=== PATIENT | male | born 1945 | race Hispanic/Latino ===

== ENCOUNTER 2023-05-21 17:57 | Inpatient (IN) | payer OTHER ==
[2023-05-21 18:45] LABS: Absolute Lymphocytes (CBC) 0.2 K/uL (0.7-4.9); Hematocrit 32.9 % (39.6-49.0); Lymphocytes % 1.8 % (15.3-44.8); MCV 95.6 fL (80-100); MPV 8.7 fL (7.6-11.3); Platelets 189 thou/uL (152-406); RBC Red Blood Cell Count 3.44 M/uL (4.33-5.43)
[2023-05-21 18:48] LABS: Protime INR 1.33
[2023-05-21] MEDS ORDERED: NA CHLORIDE 0.9% 1,000 ML ONE ×3 (18:49→21:34)
[2023-05-21] MEDS ORDERED: CEFTRIAXONE 1000 MG/VIAL ONE (18:49)
[2023-05-21] MEDS ORDERED: ACETAMINOPHEN 500 MG TAB ONE (18:49)
--- NOTE | 2023-05-21 18:57 | RAD REPORT ---
EXAM DESCRIPTION: RAD - Chest Single View - 05/21/2023 6:46 pm CLINICAL HISTORY: COUGH Chest pain. COMPARISON: Chest Pa And Lat (2 Views) dated 12/27/2022; Chest Pa And Lat (2 Views) dated 08/10/2021; C hest Pa And Lat (2 Views) dated 02/20/2016; CHEST PA AND LAT 2 VIEW dated 04/21/2015 FINDINGS: Portable technique limits examination quality. The lungs are mildly emphysematous but clear. The heart is normal in size. No displaced fractures. IMPRESSION: Mild COPD.
[2023-05-21 19:07] LABS: Albumin 3.7 g/dL (3.4-5.0); Bilirubin Total 0.8 mg/dL (0.2-1.0); Potassium 3.4 mEq/L (3.5-5.1)
[2023-05-21 20:30] LABS: Specific Gravity 1.016 (1.005-1.030); Urine Bacteria <20 /HPF (<20); Urine Bilirubin 2+ (Negative); Urine Blood 1+ (Negative); Urine Clarity Extremely Turbid (Clear); Urine Color Dark-Yellow (Yellow); Urine Glucose NEGATIVE (Negative); Urine Mucus Slight /HPF (None Seen); Urine Protein 2+ (Negative); Urine Urobilinogen 2+ (Normal); Urine pH 6.5 (5.0-7.0)
[2023-05-21] MEDS ORDERED: MAGNESIUM SULFATE 1 gm IVPB 1 GM/100 ML BAG IV ONE (20:41)
[2023-05-21] MEDS ORDERED: POTASSIUM CL SA 10 MEQ TAB PO ONE (20:41)
--- NOTE | 2023-05-21 21:04 | EDPHYS ---
Physician Documentation [facility] Name: Lele Bain Age: 78 yrs Sex: Male : 1945 Arrival Date: 05/21/2023 Time: 17:57 Bed 19 Private MD: ED Physician Khris Rodriguez HPI: 05/21 18:04 This 78 yrs old Male presents to ER via Unassigned with complaints of ec2 confusion, urinary retention. 18:05 Patient arrives today due to concern for altered mental status. Hard to gather history ec2 from patient as he is slightly altered. He does report he has been having issues with urination, states that he feels he is unable to void and has not voided since approximately 15 hours ago. No reported fevers or chills, no nausea or vomiting. EMS reports he was significantly tachycardic with a heart rate in the 160s on their initial arrival on assessment. They had given him some crystalloid which improved his heart rate. Patient reports history of hypertension.. Historical: - Allergies: 18:06 No Known Allergies; mb9 - Home Meds: 18:06 folic acid 1 mg Oral tablet [Active]; losartan 100 mg oral tablet [Active]; mb9 methotrexate sodium 2.5 mg Oral tablet [Active]; amlodipine 5 mg tablet [Active]; - PMHx: 18:06 Hypertensive disorder; mb9 - PSHx: 18:06 back; mb9 - Immunization history:: Adult Immunizations up to date. - Social history:: Smoking status: Patient reports the use of cigarette tobacco products, denies chronic smoking, but will smoke occasionally. ROS: 18:06 Constitutional: as per hpi ec2 Exam: 18:06 Constitutional: GEN: NAD Head: atraumatic Eyes: EOMI Ears: External ears are ec2 normal. CV: Tachycardia LUNGS: no respiratory distress ABD: non-distended, soft, nontender, no guarding, not rigid SKIN: no evidence of rashes MSK: no evidence of trauma NEURO: moves all extremities equally Vital Signs: 18:02 BP 121 / 65; Pulse 108; Resp 18; Temp 98.4; Pulse Ox 100% on R/A; Weight 63.5 kg; mb9 Height 5 ft. 4 in. ; Pain 0/10; 18:49 BP 113 / 79; Pulse 112; Resp 24; Pulse Ox 100% on R/A; mb9 20:14 Pulse 104; ec2 20:36 BP 94 / 57; Pulse 104; Resp 21; Pulse Ox 98% ; bp 20:56 BP 94 / 57; Pulse 95; ec2 21:02 BP 102 / 58; Pulse 98; ec2 22:00 BP 90 / 55; Pulse 96; Resp 20; Pulse Ox 100% ; bp 05/22 00:00 BP 84 / 66; Pulse 95; Resp 25; Pulse Ox 97% ; bp 01:30 BP 102 / 59; Pulse 97; Resp 25; Pulse Ox 98% ; bp 05/21 18:02 Body Mass Index 24.03 (63.50 kg, 162.56 cm) mb9 05/21 18:02 Pain Scale: Adult mb9 MDM: 05/21 18:03 Patient medically screened. ec2 18:06 ED course: Patient arrives today due to concern for altered mental status as well as ec2 urinary retention. Examination remarkable for well-appearing nontoxic dividual otherwise in no acute distress with reassuring blood pressure and some tachycardia noted on our initial assessment. Will obtain a septic work-up, perform bladder scan, empirically treat for urinary pathology. Currently considered) such as electrolyte disturbances, urinary tract infection, pneumonia, hyperammonemia.. 18:55 ED course: EKG independently reviewed and interpreted by me, shows sinus tachycardia, ec2 rate of 109, no acute ST segment elevations, intervals are nonconcerning, does have motion artifact appreciated.. 19:09 ED course: CBC is reassuring without significant anemia, metabolic profile shows slight ec2 hypokalemia with a potassium of 3.4, some renal dysfunction noted with a creatinine 1.35 and a GFR 53. Chest x-ray shows no acute process. . 19:20 ED course: Lactic acid was slight elevation at 3.0, ammonia level undetectable.. ec2 20:56 ED course: Urine is infectious appearing with leuk esterase, WBC as well as nitrates. ec2 We will proceed with admission to the hospital for sepsis secondary to UTI. I discussed the results with the patient, will admit, discussed with hospitalist who agrees accept admission. . 20:56 Data reviewed: vital signs. ec2 21:04 ED course: On reassessment patient with improving heart rate, stable blood pressures.. ec2 05/21 18:04 Order name: Blood Culture Adult (2) ec2 05/21 18:04 Order name: CBC with Diff; Complete Time: 19:08 ec2 05/21 18:04 Order name: CMP; Complete Time: 19:08 ec2 05/21 18:04 Order name: Lactate w/ 2H reflex if indic.; Complete Time: 19:20 ec2 05/21 18:04 Order name: Protime (+inr); Complete Time: 19:08 ec2 05/21 18:04 Order name: Ptt, Activated; Complete Time: 19:08 ec2 05/21 18:04 Order name: Urinalysis w/ reflexes; Complete Time: 20:55 ec2 05/21 18:06 Order name: AMMONIA; Complete Time: 19:20 ec2 05/21 20:40 Order name: Urine Culture EDMS 05/21 22:07 Order name: Lactate Sepsis 2 HR Follow-up EDMS 05/21 18:04 Order name: Chest Single View XRAY; Complete Time: 19:08 ec2 05/21 18:04 Order name: EKG; Complete Time: 18:05 ec2 05/21 18:04 Order name: Accucheck; Complete Time: 18:34 ec2 05/21 18:04 Order name: Cardiac monitoring; Complete Time: 18:34 ec2 05/21 18:04 Order name: EKG - Nurse/Tech; Complete Time: 18:34 ec2 05/21 18:04 Order name: IV Saline Lock - Large Bore; Complete Time: 18:34 ec2 05/21 18:04 Order name: Labs collected and sent; Complete Time: 18:34 ec2 05/21 18:04 Order name: O2 Per Protocol; Complete Time: 18:34 ec2 05/21 18:04 Order name: O2 Sat Monitoring; Complete Time: 18:34 ec2 05/21 18:04 Order name: Vital Signs; Complete Time: 18:34 ec2 05/21 18:05 Order name: Bladder Scanner; Complete Time: 20:25 ec2 Administered Medications: 18:49 Drug: Rocephin IV 1 grams IV at calculated rate once; Given slow IV push per pharmacy mb9 instructions Route: IV; Rate: calculated rate; Site: left forearm; 18:49 Drug: NS 0.9% IV 1000 ml IV at 1 bolus Per protocol; 1000 mL bolus Route: IV; Rate: 1 mb9 bolus; Site: left forearm; 18:50 Drug: Acetaminophen PO 1000 mg PO once Route: PO; mb9 20:07 Drug: NS 0.9% IV 1000 ml IV at 1 bolus Per protocol; 1000 mL bolus Route: IV; Rate: 1 bp bolus; Site: left forearm; 20:33 Drug: Potassium Chloride PO 40 mEq PO once Route: PO; bp 20:33 Drug: Magnesium Sulfate IVPB 1 grams IVPB once over 30 mins Route: IVPB; Infused Over: bp 30 mins; Site: left forearm; 21:33 Drug: NS 0.9% IV 1000 ml IV at 1 bolus Per protocol; 1000 mL bolus Route: IV; Rate: 1 bp bolus; Site: left forearm; Disposition Summary: 05/21/23 21:04 Hospitalization Ordered Notes: Hospitalization Status: Inpatient Admission ec2 Provider: Jigar Carlos ec2 Location: Telemetry/[facility] (Inpatient) ec2 Condition: Stable ec2 Problem: new ec2 Symptoms: have improved ec2 Bed/Room Type: Standard ec2 Room Assignment: 231(05/22/23 00:55) cg Diagnosis - UTI/ Urinary tract infection, site not specified ec2 - Sepsis, unspecified organism ec2 Forms: - Medication Reconciliation Form ec2 - SBAR form ec2 - Leadership Thank You Letter ec2 Critical care time excluding procedures: 20:56 Critical care time: Bedside Care: 30 minutes, Consultation: 4 minutes. Total time: 34 ec2 minutes Signatures: Dispatcher [employer] Candie Gutiérrez RN RN cg Peltier, Brian, RN RN bp Breneman, Mary Beth RN RN Khris Bear MD MD ec2 Corrections: (The following items were deleted from the chart) 05/22 00:55 05/21 21:04 ec2 cg
--- NOTE | 2023-05-21 21:04 | ER ---
Nurse's Notes [facility] Name: Lele Bain Age: 78 yrs Sex: Male : 1945 Arrival Date: 05/21/2023 Time: 17:57 Bed 19 Private MD: Diagnosis: UTI/ Urinary tract infection, site not specified;Sepsis, unspecified organism Presentation: 05/21 18:02 Chief complaint: EMS states: "family called for shaking, diaphoretic, confusion, 160 mb9 HR. 12 lead showed sinus tachycardia. 18 g right AC and administer 500 mls of NS. Coronavirus screen: Vaccine status: Patient reports receiving the 2nd dose of the covid vaccine. Ebola Screen: No symptoms or risks identified at this time. Initial Sepsis Screen: Does the patient meet any 2 criteria? No. Patient's initial sepsis screen is negative. Does the patient have a suspected source of infection? No. Patient's initial sepsis screen is negative. Risk Assessment: Do you want to hurt yourself or someone else? Patient reports no desire to harm self or others. Onset of symptoms was May 21, 2023. 18:02 Method Of Arrival: EMS: [facility] mb9 18:02 Acuity: SAEID 3 mb9 Triage Assessment: 18:08 General: Appears in no apparent distress. Behavior is calm, cooperative. Pain: Denies mb9 pain. EENT: No signs and/or symptoms were reported regarding the EENT system. Neuro: Leyva Agitation-Sedation Scale (RASS): 0 - Alert and Calm Level of Consciousness is awake, obeys commands, confused, Oriented to person, place, situation. Cardiovascular: Patient's skin is warm and dry. Cardiovascular: Denies chest pain, shortness of breath. Respiratory: Airway is patent Respiratory effort is even, unlabored, Respiratory pattern is regular, symmetrical. GI: No signs and/or symptoms were reported involving the gastrointestinal system. : Reports burning with urination, since last night. Derm: Skin is pink, warm \\T\\ dry. Musculoskeletal: Range of motion: intact in all extremities. Historical: - Allergies: 18:06 No Known Allergies; mb9 - Home Meds: 18:06 folic acid 1 mg Oral tablet [Active]; losartan 100 mg oral tablet [Active]; mb9 methotrexate sodium 2.5 mg Oral tablet [Active]; amlodipine 5 mg tablet [Active]; - PMHx: 18:06 Hypertensive disorder; mb9 - PSHx: 18:06 back; mb9 - Immunization history:: Adult Immunizations up to date. - Social history:: Smoking status: Patient reports the use of cigarette tobacco products, denies chronic smoking, but will smoke occasionally. Screenin:09 [facility] ED Fall Risk Assessment (Adult) History of falling in the last 3 months, mb9 including since admission No falls in past 3 months (0 pts) Confusion or Disorientation No (0 pts) Intoxicated or Sedated No (0 pts) Impaired Gait No (0 pts) Mobility Assist Device Used No (0 pt) Altered Elimination No (0 pt) Score/Fall Risk Level 0 - 2 = Low Risk Oriented to surroundings, Maintained a safe environment, Educated pt \\T\\ family on fall prevention, incl call for assistance when getting out of bed. Abuse screen: Denies threats or abuse. Nutritional screening: No deficits noted. Tuberculosis screening: No symptoms or risk factors identified. Assessment: 18:10 Reassessment: see triage assessment. mb9 19:00 Reassessment: RECD REPORT FROM AGUS CARRILLO. 78YO HM P/W MALAISE. bp 20:36 Reassessment: Patient appears in no apparent distress at this time. Patient is alert, bp oriented x 3, equal unlabored respirations, skin warm/dry/pink. Vital Signs: 18:02 BP 121 / 65; Pulse 108; Resp 18; Temp 98.4; Pulse Ox 100% on R/A; Weight 63.5 kg; mb9 Height 5 ft. 4 in. ; Pain 0/10; 18:49 BP 113 / 79; Pulse 112; Resp 24; Pulse Ox 100% on R/A; mb9 20:14 Pulse 104; ec2 20:36 BP 94 / 57; Pulse 104; Resp 21; Pulse Ox 98% ; bp 20:56 BP 94 / 57; Pulse 95; ec2 21:02 BP 102 / 58; Pulse 98; ec2 22:00 BP 90 / 55; Pulse 96; Resp 20; Pulse Ox 100% ; bp 05/22 00:00 BP 84 / 66; Pulse 95; Resp 25; Pulse Ox 97% ; bp 01:30 BP 102 / 59; Pulse 97; Resp 25; Pulse Ox 98% ; bp 05/21 18:02 Body Mass Index 24.03 (63.50 kg, 162.56 cm) mb9 05/21 18:02 Pain Scale: Adult mb9 ED Course: 05/21 18:02 Patient arrived in ED. mb9 18:03 Khris Rodriguez MD is Attending Physician. ec2 18:06 Triage completed. mb9 18:08 Arm band placed on. mb9 18:09 Placed in gown. Bed in low position. Call light in reach. Side rails up X 1. Client mb9 placed on continuous cardiac and pulse oximetry monitoring. NIBP monitoring applied. telemetry monitor on. 18:09 Maintain EMS IV. Dressing intact. Good blood return noted. Site clean \\T\\ dry. Gauge \\T\\ mb 9 site: 18 g right AC. 18:11 Lakesha High, GERARDO is Primary Nurse. mb9 18:34 AMMONIA Sent. mb9 18:34 CMP Sent. mb9 18:34 Blood Culture Adult (2) Sent. mb9 18:34 Protime (+inr) Sent. mb9 18:34 Ptt, Activated Sent. mb9 18:34 EKG done, by ED staff, reviewed by Khris Rodriguez MD. Inserted saline lock: 18 gauge in mb9 left forearm, using aseptic technique. 18:48 Chest Single View XRAY In Process Unspecified. EDMS 20:37 Primary Nurse role handed off by Lakesha High, GERARDO bp 20:37 Christopher Snyder, GERARDO is Primary Nurse. bp 21:03 Jigar Carlos MD is Hospitalizing Provider. ec2 05/22 01:32 No provider procedures requiring assistance completed. Patient admitted, IV remains in bp place. Administered Medications: 05/21 18:49 Drug: Rocephin IV 1 grams IV at calculated rate once; Given slow IV push per pharmacy mb9 instructions Route: IV; Rate: calculated rate; Site: left forearm; 18:49 Drug: NS 0.9% IV 1000 ml IV at 1 bolus Per protocol; 1000 mL bolus Route: IV; Rate: 1 mb9 bolus; Site: left forearm; 18:50 Drug: Acetaminophen PO 1000 mg PO once Route: PO; mb9 20:07 Drug: NS 0.9% IV 1000 ml IV at 1 bolus Per protocol; 1000 mL bolus Route: IV; Rate: 1 bp bolus; Site: left forearm; 20:33 Drug: Potassium Chloride PO 40 mEq PO once Route: PO; bp 20:33 Drug: Magnesium Sulfate IVPB 1 grams IVPB once over 30 mins Route: IVPB; Infused Over: bp 30 mins; Site: left forearm; 21:33 Drug: NS 0.9% IV 1000 ml IV at 1 bolus Per protocol; 1000 mL bolus Route: IV; Rate: 1 bp bolus; Site: left forearm; Medication: 18:09 VIS not applicable for this client. mb9 Outcome: 21:04 Decision to Hospitalize by Provider. ec2 05/22 01:33 Admitted to Med/surg accompanied by tech, family with patient, via wheelchair, room bp 231, Report called to FRANNY CARRILLO Condition: stable Instructed on the need for admit, 01:50 Patient left the ED. bp Signatures: Dispatcher [employer] Christopher Domingo, RN RN Lakesha Claros RN RN mb9 Khris Rodriguez MD MD ec2
--- NOTE | 2023-05-21 23:16 | P.HP ---
Certification for Inpatient Patient admitted to: Inpatient With expected LOS: >2 Midnights Practitioner: I am a practitioner with admitting privileges, knowledge of patient current condition, hospital course, and medical plan of care. Services: Services provided to patient in accordance with Admission requirements found in Title 42 Section 412.3 of the Code of Federal Regulations Patient History Date of Service: 05/22/23 Reason for admission: UTI, altered mental status History of Present Illness: 78-year-old male patient with medical history significant for diabetes type 2, hypertension, hyperlipidemia, history of suspected dementia who was evaluated for episode of altered mentation. Labs done in the ER was concerning for possible UTI as UA is extremely concerning with a turbid appearance and elevated leukocyte esterase and pyuria. Cultures were taken and he was admitted for inpatient care. Empiric antibiotic therapy with Rocephin was started for management. There was no reports of nausea, vomiting, diarrhea, fever, chills, rigor. Allergies No Known Allergies Allergy (Unverified 03/21/12 09:37) Home Medications: Amlodipine [Norvasc*] 1 tab PO DAILY 05/22/23 Folic Acid 1 tab PO DAILY 05/22/23 Losartan Potassium 100 mg PO DAILY 05/22/23 Methotrexate [Methotrexate*] 6 tab PO SEECOM 05/22/23 - Family History Father History Unknown: Yes Mother History Unknown: Yes Notes: passed when pt was 9 year old Review of Systems General: Weakness, Malaise Eyes: Unremarkable ENT: Unremarkable Respiratory: Unremarkable Cardiovascular: Unremarkable Gastrointestinal: Unremarkable Genitourinary: Unremarkable Musculoskeletal: Unremarkable Integumentary: Unremarkable Neurological: Confusion Physical Examination - Physical Exam General: Delirious HEENT: Atraumatic, Normocephalic Respiratory: Normal air movement Cardiovascular: Regular rate/rhythm, Normal S1 S2 Gastrointestinal: Soft and benign Musculoskeletal: No swelling - Studies Laboratory Data (last 24 hrs) 05/21/23 05/21/23 05/21/23 18:29 18:29 18:29 WBC 9.60 Hgb 11.2 L Hct 32.9 L Plt Count 189 PT 14.6 H INR 1.33 APTT 30.6 Sodium 137 Potassium 3.4 L BUN 22 H Creatinine 1.35 H Glucose 105 Total Bilirubin 0.8 AST 18 ALT 21 Alkaline Phosphatase 73 Assessment and Plan - Plan Toxic/Metabolic encephalopathy: Deemed secondary to his UTI episode. Urine cultures were taken. Empiric antibiotic therapy with rocephin was started. Will monitor mentation closely. UTI: Urinalysis is concerning. Urine culture has been obtained. we will monitor cultures for adjustment as needed. Hypertension: we will monitor vitals per unit protocol and continue antihypertensive medications. MAO vs CKD: elevated creatinine of 1.35 noted. we will hydrate and follow creatinine trend. we will dose meds for eGFR and avoid nephrotooxins. Prophylaxis: Lovenox for DVT. Code status: Full code. Disposition: we will treat his ams and UTI and discharge him once he is deemed clinically stable. Discharge Plan: Home - Advance Directives Does patient have a Living Will: No Does patient have a Durable POA for Healthcare: No
[2023-05-21] MEDS ORDERED: ONDANSETRON 4 MG/2 ML VIAL IV PRN (23:18)
[2023-05-21] MEDS ORDERED: ACETAMINOPHEN 325 MG TABLET PO PRN (23:18)
[2023-05-21] MEDS: NA CHLORIDE 0.9% 1,000 ML IV SCH (23:45)
[2023-05-22] MEDS: NA CHLORIDE 0.9% 1,000 ML IV SCH ×4 (02:32→22:53)
--- NOTE | 2023-05-22 07:54 | P.CNS ---
Date of Consult: 05/22/23 Reason for Consult: gram negative bacteremia Chief Complaint: UTI, altered mental status History of Present Illness: Patient is a 78 yo male with a past medical history of hypertension and hyperlipdemia who presented to the ED due to altered mental status. Urinalysis with 2+ nitrite, WBC >50, LE 500. Urine and blood cultures obtained in ED. Patient was started on empiric Rocephin IV. Blood cultures growing gram-negative rods in 4/4 bottles. infectious disease was consulted. Allergies No Known Allergies Allergy (Unverified 03/21/12 09:37) Home medications list reviewed: Yes Home Medications: Abatacept [Orencia] 125 mg SQ EVERY 7TH DAY 05/22/23 Amlodipine [Norvasc*] 1 tab PO DAILY 05/22/23 Folic Acid 1 tab PO DAILY 05/22/23 Losartan Potassium 100 mg PO DAILY 05/22/23 Methotrexate [Methotrexate*] 6 tab PO SEECOM 05/22/23 - Past Medical/Surgical History Diabetic: No -: Hypertension -: Arthritis - Family History Father History Unknown: Yes Mother History Unknown: Yes Notes: passed when pt was 9 year old - Social History Smoking Status: Current some day smoker Alcohol use: Yes CD- Drugs: No Caffeine use: Yes Place of Residence: Home Review of Systems 10-point ROS is otherwise unremarkable General: Chills, Weakness Genitourinary: Dysuria, Frequency Physical Examination Temp Pulse Resp BP Pulse Ox 98.3 F 82 16 106/68 97 05/22/23 04:00 05/22/23 04:00 05/22/23 04:00 05/22/23 04:00 05/22/23 04:00 General: Alert, In no apparent distress, Oriented x3 HEENT: Atraumatic Neck: Supple Respiratory: Clear to auscultation bilaterally, Normal air movement Cardiovascular: No edema, Regular rate/rhythm Gastrointestinal: Normal bowel sounds, Soft and benign Integumentary: No rashes Neurological: Normal speech Laboratory Data - Reviewed Microbiology Data - Reviewed Imagings Data: - Reviewed Conclusions/Impression: Problem List Gram-Negative Bacteremia likely secondary to Urinary Tract Infection Acute Kidney Injury Hypertension Gram-Negative Bacteremia likely secondary to Urinary Tract Infection - Blood cultures 05/21: gram-negative rods in 4 of 4 bottles - Urine culture 05/21: pending - Afebrile - On Rocephin (started 05/22) Recommendations Bacteremia/UTI: Continue Rocephin for now. - Awaiting final blood culture results. Will adjust antibiotics as appropriate. Monitor WBC and fever trends Case discussed with Howie Malagon
--- NOTE | 2023-05-22 09:13 | RAD REPORT ---
EXAM DESCRIPTION: CT - Head Brain Wo Cont - 05/22/2023 9:06 am CLINICAL HISTORY: AMS Headache, drowsiness COMPARISON: No comparisons TECHNIQUE: All CT scans are performed using dose optimization technique as appropriate and may inclu de automated exposure control or mA/KV adjustment according to patient size. FINDINGS: No intracranial hemorrhage, hydrocephalus or extra-axial fluid collection.Moderate brain a trophy.No areas of brain edema or evidence of midline shift. The paranasal sinuses and mastoids are clear. The calvarium is intact. IMPRESSION: No acute intracranial abnormality.
[2023-05-22] MEDS ORDERED: POTASSIUM CL SA 10 MEQ TAB PO ONE (10:33)
--- NOTE | 2023-05-22 10:37 | P.PN ---
Subjective Date of Service: 05/22/23 Chief Complaint: UTI, altered mental status Patient History Date of S admission: 05/22/23 Reason for admission: UTI, altered mental status History of Present Illness: 78-year-old male patient with medical history significant for diabetes type 2, hypertension, hyperlipidemia, history of suspected dementia who was evaluated for episode of altered mentation. Labs done in the ER was concerning for possible UTI as UA is extremely concerning with a turbid appearance and elevated leukocyte esterase and pyuria. Cultures were taken and he was admitted for inpatient care. Empiric antibiotic therapy with Rocephin was started for management. There was no reports of nausea, vomiting, diarrhea, fever, chills, rigor. 05/22/2023 Patient is alert and oriented x3 Denies any new complaints No acute distress noticed Patient's family at bedside <Serge Schwartz - Last Filed: 05/22/23 16:41> Date of Service: 05/22/23 <Kevyn Zuniga - Last Filed: 05/22/23 18:19> Review of Systems 10-point ROS is otherwise unremarkable <Serge Schwartz - Last Filed: 05/22/23 16:41> Physical Examination - Vital Signs Temperature: 98.3 F Blood Pressure: 106/68 Pulse: 82 Respirations: 16 Pulse Ox (%): 97 - Studies Laboratory Data (last 24 hrs) 05/21/23 05/21/23 05/21/23 18:29 18:29 18:29 WBC 9.60 Hgb 11.2 L Hct 32.9 L Plt Count 189 PT 14.6 H INR 1.33 APTT 30.6 Sodium 137 Potassium 3.4 L BUN 22 H Creatinine 1.35 H Glucose 105 Total Bilirubin 0.8 AST 18 ALT 21 Alkaline Phosphatase 73 Microbiology Data (last 24 hrs): 05/21/23 18:20 Blood - Blood Blood Culture Gram Stain - Final 05/21/23 18:20 Blood - Blood Gram Stain - Final 05/21/23 18:25 Blood - Blood Blood Culture Gram Stain - Final 05/21/23 18:25 Blood - Blood Gram Stain - Final <Serge Schwartz - Last Filed: 05/22/23 16:41> - Studies Laboratory Data (last 24 hrs) 05/21/23 05/21/23 05/21/23 18:29 18:29 18:29 WBC 9.60 Hgb 11.2 L Hct 32.9 L Plt Count 189 PT 14.6 H INR 1.33 APTT 30.6 Sodium 137 Potassium 3.4 L BUN 22 H Creatinine 1.35 H Glucose 105 Total Bilirubin 0.8 AST 18 ALT 21 Alkaline Phosphatase 73 Microbiology Data (last 24 hrs): 05/21/23 18:20 Blood - Blood Blood Culture Gram Stain - Final 05/21/23 18:20 Blood - Blood Gram Stain - Final 05/21/23 18:25 Blood - Blood Blood Culture Gram Stain - Final 05/21/23 18:25 Blood - Blood Gram Stain - Final <Kevyn Zuniga - Last Filed: 05/22/23 18:19> Assessment And Plan - Plan Physical Examination - Physical Exam General: Delirious HEENT: Atraumatic, Normocephalic Respiratory: Normal air movement Cardiovascular: Regular rate/rhythm, Normal S1 S2 Gastrointestinal: Soft and benign Musculoskeletal: No swelling Assessment and Plan - Plan Toxic/Metabolic encephalopathy: Deemed secondary to his UTI episode. UTI: * Patient is alert, oriented no acute distress noticed * Urine cultures were taken 05/21/2023. On empiric antibiotic therapy with rocephin * .Will monitor mentation closely. * we will monitor cultures for adjustment as needed. Hypertension: * Chronic controlled on amlodipine 5 mg and losartan 100 mg at home * Not resumed after admission since blood pressure is running low 100 * Will monitor and restart as needed * we will monitor vitals per unit protocol and continue antihypertensive medications. MAO vs CKD: * elevated creatinine. BUN 22 and creatinine 1.35 today, GFR 53. we will hydrate and follow creatinine trend. * we will dose meds for eGFR and avoid nephrotooxins. Prophylaxis: Lovenox for DVT. Code status: Full code. Disposition: we will treat his ams and UTI and discharge him once he is deemed clinically stable. Discharge Plan: Home Plan to discharge in: 72 Hours - Code Status/Comfort Care Code Status Assessed: Yes (Full code) Code Status: Full Code Critical Care: No Time Spent Managing PTS Care (In Minutes): 35 (Minute) <Serge Schwartz - Last Filed: 05/22/23 16:41> Physician Review: Patient Assessed, Agree with Above Assessment and Plan Physician Review Additional Text: Mr. Bain is a pleasant 78 year old male admitted yesterday for severe sepsis (POA). He was found to have a gram-negative UTI with gram-negative bacteremia. Infectious Diseases has been consulted. Currently on IV ceftriaxone and responding well to treatment. Will adjust treatment based on culture speciation and sensitivites. He is alert and oriented x3 today. <Kevyn Zuniga - Last Filed: 05/22/23 18:19>
[2023-05-22] MEDS: ENOXAPARIN 40 MG/0.4 ML SQ SCH (11:47)
[2023-05-22] MEDS ORDERED: LOSARTAN POTASSIUM 50 MG TABLET PO SCH (15:00)
[2023-05-22] MEDS ORDERED: AMLODIPINE 5 MG TAB PO SCH (15:00)
[2023-05-22 16:17] VITALS: BMI 24.6
[2023-05-22] MEDS ORDERED: CEFTRIAXONE 1,000 MG in NA CHLORIDE 0.9% 50 ML IVPB SCH (18:00)
[2023-05-23 03:36] LABS: Absolute Lymphocytes (CBC) 1.1 K/uL (0.7-4.9); Hematocrit 28.7 % (39.6-49.0); Lymphocytes % 5.2 % (15.3-44.8); MCV 95.3 fL (80-100); MPV 9.1 fL (7.6-11.3); Platelets 125 thou/uL (152-406); RBC Red Blood Cell Count 3.01 M/uL (4.33-5.43)
[2023-05-23] MEDS: NA CHLORIDE 0.9% 1,000 ML IV SCH ×3 (05:45→21:43)
--- NOTE | 2023-05-23 08:51 | P.PN ---
Date of Service: 05/23/23 Chief Complaint: UTI, altered mental status Subjective: Patient seen and examined at bedside. He denies any new or worsening complaints at this time. No acute events reported overnight. Plan of care discussed with patient and granddaughter in room. Physical Examination Temp Pulse Resp BP Pulse Ox 98.5 F 76 16 136/69 99 05/23/23 04:00 05/23/23 04:00 05/23/23 04:00 05/23/23 04:00 05/23/23 04:00 General: Alert, In no apparent distress, Oriented x3 HEENT: Atraumatic. Normocephalic. Respiratory: Clear to auscultation bilaterally, Normal air movement Cardiovascular: No edema, Regular rate/rhythm Gastrointestinal: Normal bowel sounds, Soft and benign. No tenderness. Integumentary: No rashes Neurological: Normal speech Laboratory Data - Reviewed Microbiology Data - Reviewed Imagings Data: - Reviewed Medications List: Reviewed Assessment and Plan Problem List Gram-Negative Bacteremia likely secondary to Urinary Tract Infection Acute Kidney Injury Hypertension Gram-Negative Bacteremia secondary to Urinary Tract Infection - Blood cultures 05/21: gram-negative rods in 4 of 4 bottles - Urine culture 05/21: Escherichia coli ESBL - Started on empiric Rocephin on 05/22 which was switched to Meropenem on 05/23 following urine culture results Leukocytosis (WBC 20.5) Afebrile Recommendations Bacteremia/UTI: Started on Meropenem 05/23. Continue antibiotic therapy for 10 days (05/23-06/02) - Awaiting final blood culture results. Will adjust antibiotics as appropriate. - Patient will need PICC line - Monitor WBC and fever trends - Follow up with urologist as outpatient Case discussed with Howie Malagon
[2023-05-23] MEDS ORDERED: HOME MED 1 EA UNK (Losartan Potassium [Losartan Potassium] 100 MG Tablet) PO SCH (09:00)
[2023-05-23] MEDS: Meropenem 1,000 MG in NA CHLORIDE 0.9% 100 ML IV SCH ×2 (09:28→16:58)
[2023-05-23] MEDS: ENOXAPARIN 40 MG/0.4 ML SQ SCH (09:28)
--- NOTE | 2023-05-23 10:14 | P.PN ---
Subjective Date of Service: 05/23/23 Chief Complaint: UTI, altered mental status Subjective: No C/O voiced, Doing well Patient History Date of S admission: 05/22/23 Reason for admission: UTI, altered mental status History of Present Illness: 78-year-old male patient with medical history significant for diabetes type 2, hypertension, hyperlipidemia, history of suspected dementia who was evaluated for episode of altered mentation. Labs done in the ER was concerning for possible UTI as UA is extremely concerning with a turbid appearance and elevated leukocyte esterase and pyuria. Cultures were taken and he was admitted for inpatient care. Empiric antibiotic therapy with Rocephin was started for management. There was no reports of nausea, vomiting, diarrhea, fever, chills, rigor. 05/23/2023 Patient is alert and oriented x3 Denies any new complaints No acute distress noticed Patient's family at bedside Elevated WBCs today <Serge Schwartz - Last Filed: 05/23/23 16:24> Date of Service: 05/23/23 <Kevyn Zuniga - Last Filed: 05/23/23 19:23> Review of Systems 10-point ROS is otherwise unremarkable <Serge Schwartz - Last Filed: 05/23/23 16:24> Physical Examination - Vital Signs Temperature: 99.0 F Blood Pressure: 138/72 Pulse: 84 Respirations: 14 Pulse Ox (%): 98 - Studies Microbiology Data (last 24 hrs): 05/21/23 20:05 Clean Catch Urine [place] Count - Final >100,000 CFU/ML. 05/21/23 20:05 Clean Catch Urine - Final Escherichia Coli Esbl 05/21/23 18:25 Blood - Blood Blood Culture Gram Stain - Final 05/21/23 18:25 Blood - Blood Gram Stain - Final 05/21/23 18:20 Blood - Blood Blood Culture Gram Stain - Final 05/21/23 18:20 Blood - Blood Gram Stain - Final <Serge Schwartz - Last Filed: 05/23/23 16:24> - Studies Microbiology Data (last 24 hrs): 05/21/23 20:05 Clean Catch Urine [place] Count - Final >100,000 CFU/ML. 05/21/23 20:05 Clean Catch Urine - Final Escherichia Coli Esbl 05/21/23 18:25 Blood - Blood Blood Culture Gram Stain - Final 05/21/23 18:25 Blood - Blood Gram Stain - Final 05/21/23 18:20 Blood - Blood Blood Culture Gram Stain - Final 05/21/23 18:20 Blood - Blood Gram Stain - Final <Kevyn Zuniga - Last Filed: 05/23/23 19:23> Assessment And Plan - Plan Physical Examination - Physical Exam General: Alert and oriented HEENT: Atraumatic, Normocephalic Respiratory: Normal air movement Cardiovascular: Regular rate/rhythm, Normal S1 S2 Gastrointestinal: Soft and benign Musculoskeletal: No swelling Assessment and Plan - Plan Toxic/Metabolic encephalopathy: Deemed secondary to his UTI episode. Leukocytosis UTI: * Patient is alert, oriented no acute distress noticed * WBCs increased to 20.5 today, no fever, no tachycardia, breathing normally on room air. * changed antibiotic to Merrem 500 every [address] Zuniga * Will monitor mentation closely. * we will monitor cultures for adjustment as needed. Hypertension: * Chronic controlled on amlodipine 5 mg and losartan 100 mg at home * Resume home medications * we will monitor vitals per unit protocol and continue antihypertensive medications. MAO vs CKD: * Improved BUN and creatinine normal today, GFR 89. * we will dose meds for eGFR and avoid nephrotooxins. Prophylaxis: Lovenox for DVT. Code status: Full code. Disposition: we will treat his ams and UTI and discharge him once he is deemed clinically stable. Discharge Plan: Home Plan to discharge in: 72 Hours - Code Status/Comfort Care Code Status Assessed: Yes (full code) Code Status: Full Code Physician Review: Patient Assessed, Agree with Above Assessment and Plan Critical Care: No Time Spent Managing PTS Care (In Minutes): 35 (minutes) <Serge Schwartz - Last Filed: 05/23/23 16:24> Physician Review: Patient Assessed, Agree with Above Assessment and Plan Physician Review Additional Text: Urine culture revealed ESBL E. Coli. Blood culture results are still pending. Appreciate ID recs. Will likely require a PICC line with IV antibiotics at discharge. <Kevyn Zuniga - Last Filed: 05/23/23 19:23>
[2023-05-23] MEDS: NICOTINE 7 MG/PAT TD SCH (11:16)
--- NOTE | 2023-05-23 15:49 | EKG ---
Test Date: 2023-05-21 Test Time: 18:42:30 Clean Up Person: MB MEASUREMENT RESULTS: Intervals: Rate: 109 IL: 168 QRSD: 70 QT: 336 QTc: 452 [place]: P: 77 IL: 168 QRS: 62 T: 57 INTERPRETIVE STATEMENTS: Sinus tachycardia Septal infarct, age undetermined Abnormal ECG Compared to ECG 06/24/1999 13:30:00 Myocardial infarct finding now present Sinus rhythm no longer present Electronically Signed On 05-23-23 15:43:51 CDT by Varinder Back
[2023-05-24] MEDS: Meropenem 1,000 MG in NA CHLORIDE 0.9% 100 ML IV SCH ×3 (01:17→17:00)
[2023-05-24 03:39] LABS: Absolute Lymphocytes (CBC) 0.8 K/uL (0.7-4.9); Hematocrit 30.5 % (39.6-49.0); Lymphocytes % 4.4 % (15.3-44.8); MCV 94.2 fL (80-100); MPV 9.9 fL (7.6-11.3); Platelets 141 thou/uL (152-406); RBC Red Blood Cell Count 3.24 M/uL (4.33-5.43)
[2023-05-24] MEDS: NA CHLORIDE 0.9% 1,000 ML IV SCH ×2 (07:06→21:58)
[2023-05-24 08:56] LABS: Potassium 3.7 mEq/L (3.5-5.1)
[2023-05-24] MEDS: ENOXAPARIN 40 MG/0.4 ML SQ SCH (10:24)
--- NOTE | 2023-05-24 11:27 | P.PN ---
Subjective Date of Service: 05/24/23 Chief Complaint: UTI, altered mental status Subjective: Improving, Doing well Patient History Date of S admission: 05/22/23 Reason for admission: UTI, altered mental status History of Present Illness: 78-year-old male patient with medical history significant for diabetes type 2, hypertension, hyperlipidemia, history of suspected dementia who was evaluated for episode of altered mentation. Labs done in the ER was concerning for possible UTI as UA is extremely concerning with a turbid appearance and elevated leukocyte esterase and pyuria. Cultures were taken and he was admitted for inpatient care. Empiric antibiotic therapy with Rocephin was started for management. There was no reports of nausea, vomiting, diarrhea, fever, chills, rigor. 05/23/2023 Patient is alert and oriented x3 Reports dyuria and frequency today No acute distress noticed Patient's family at bedside High WBCs trending down <Serge Schwartz - Last Filed: 05/24/23 14:51> Date of Service: 05/24/23 <Kevyn Zuniga - Last Filed: 05/24/23 16:33> Physical Examination - Vital Signs Temperature: 97.2 F Blood Pressure: 171/80 Pulse: 73 Respirations: 12 Pulse Ox (%): 97 - Studies Microbiology Data (last 24 hrs): 05/21/23 18:20 Blood - Blood Aerobic Blood Culture - Final Escherichia Coli Esbl 05/21/23 18:20 Blood - Blood Blood Culture Gram Stain - Final 05/21/23 18:20 Blood - Blood Anaerobic Blood Culture - Final Escherichia Coli Esbl 05/21/23 18:20 Blood - Blood Gram Stain - Final 05/21/23 18:25 Blood - Blood Aerobic Blood Culture - Final Escherichia Coli Esbl 05/21/23 18:25 Blood - Blood Blood Culture Gram Stain - Final 05/21/23 18:25 Blood - Blood Anaerobic Blood Culture - Final Escherichia Coli Esbl 05/21/23 18:25 Blood - Blood Gram Stain - Final 05/21/23 20:05 Clean Catch Urine [place] Count - Final >100,000 CFU/ML. 05/21/23 20:05 Clean Catch Urine - Final Escherichia Coli Esbl <Serge Schwartz - Last Filed: 05/24/23 14:51> - Studies Microbiology Data (last 24 hrs): 05/21/23 18:20 Blood - Blood Aerobic Blood Culture - Final Escherichia Coli Esbl 05/21/23 18:20 Blood - Blood Blood Culture Gram Stain - Final 05/21/23 18:20 Blood - Blood Anaerobic Blood Culture - Final Escherichia Coli Esbl 05/21/23 18:20 Blood - Blood Gram Stain - Final 05/21/23 18:25 Blood - Blood Aerobic Blood Culture - Final Escherichia Coli Esbl 05/21/23 18:25 Blood - Blood Blood Culture Gram Stain - Final 05/21/23 18:25 Blood - Blood Anaerobic Blood Culture - Final Escherichia Coli Esbl 05/21/23 18:25 Blood - Blood Gram Stain - Final <Kevyn Zuniga - Last Filed: 05/24/23 16:33> Assessment And Plan - Plan Physical Examination - Physical Exam General: Alert and oriented HEENT: Atraumatic, Normocephalic Respiratory: Normal air movement Cardiovascular: Regular rate/rhythm, Normal S1 S2 Gastrointestinal: Soft and benign Musculoskeletal: No swelling Assessment and Plan - Plan Toxic/Metabolic encephalopathy: Deemed secondary to his UTI episode. Leukocytosis UTI: * Patient is alert, oriented no acute distress noticed * 05/21/23- blood culture aerobic Blood Culture - Final. COVID Escherichia Coli Esbl and 05/21/23 Clean Catch Urine- Final Escherichia Coli Esbl. * WBCs increased to 17.5 today, no fever, no tachycardia, breathing normally on room air. * Reporting Dysurin and increased frequency urine * On antibiotic to Merrem 500 every [address] Zuniga * Will monitor mentation closely. * we will monitor cultures for adjustment as needed. Hypertension: * Chronic controlled on amlodipine 5 mg and losartan 100 mg at home * Resume home medications * we will monitor vitals per unit protocol and continue antihypertensive medications. MAO vs CKD: * Resolved, Improved BUN and creatinine normal today, GFR 95 * we will dose meds for eGFR and avoid nephrotooxins. Prophylaxis: Lovenox for DVT. Code status: Full code. Disposition: we will treat his ams and UTI and discharge him once he is deemed clinically stable. Physician Review: Patient Assessed, Agree with Above Assessment and Plan <Serge Schwartz - Last Filed: 05/24/23 14:51> Physician Review: Patient Assessed, Agree with Above Assessment and Plan Physician Review Additional Text: He is doing well this morning. Blood cultures returned positive for ESBL. Spoke with Dr. Wiggins. He will require a PICC line with home IV antibiotics. Appreciate assistance. <Kevyn Zuniga - Last Filed: 05/24/23 16:33>
[2023-05-24] MEDS: LOSARTAN POTASSIUM 50 MG TABLET PO SCH (13:55)
[2023-05-24] MEDS: NICOTINE 7 MG/PAT TD SCH (13:56)
[2023-05-24] MEDS: Mupirocin NASAL 2 APPL/1 GM TUBE NAS SCH ×2 (21:00→21:58)
[2023-05-24] MEDS: AMLODIPINE 5 MG TAB PO SCH (21:57)
[2023-05-25] MEDS: Meropenem 1,000 MG in NA CHLORIDE 0.9% 100 ML IV SCH ×3 (01:00→17:10)
[2023-05-25 02:31] LABS: Absolute Lymphocytes (CBC) 0.9 K/uL (0.7-4.9); Hematocrit 29.3 % (39.6-49.0); Lymphocytes % 9.7 % (15.3-44.8); MCV 94.1 fL (80-100); MPV 8.8 fL (7.6-11.3); Platelets 171 thou/uL (152-406); RBC Red Blood Cell Count 3.12 M/uL (4.33-5.43)
[2023-05-25 02:47] LABS: Albumin 2.4 g/dL (3.4-5.0); Bilirubin Total 0.3 mg/dL (0.2-1.0); Potassium 3.6 mEq/L (3.5-5.1); Protein, Total 5.5 g/dL (6.4-8.2)
[2023-05-25] MEDS ORDERED: NA CHLORIDE 0.9% 100 ML ONE (08:43)
[2023-05-25] MEDS: LOSARTAN POTASSIUM 50 MG TABLET PO SCH (08:46)
[2023-05-25] MEDS: AMLODIPINE 5 MG TAB PO SCH (08:46)
[2023-05-25] MEDS: NA CHLORIDE 0.9% 1,000 ML IV SCH ×2 (08:46→17:10)
[2023-05-25] MEDS: NICOTINE 7 MG/PAT TD SCH (08:47)
[2023-05-25] MEDS: ENOXAPARIN 40 MG/0.4 ML SQ SCH (08:47)
[2023-05-25] MEDS: Mupirocin NASAL 2 APPL/1 GM TUBE NAS SCH ×3 (08:48→21:24)
--- NOTE | 2023-05-25 10:31 | P.PN ---
Subjective Date of Service: 05/25/23 Chief Complaint: UTI, altered mental status Subjective: No new changes, Improving, Doing well Patient History Date of S admission: 05/22/23 Reason for admission: UTI, altered mental status History of Present Illness: 78-year-old male patient with medical history significant for diabetes type 2, hypertension, hyperlipidemia, history of suspected dementia who was evaluated for episode of altered mentation. Labs done in the ER was concerning for possible UTI as UA is extremely concerning with a turbid appearance and elevated leukocyte esterase and pyuria. Cultures were taken and he was admitted for inpatient care. Empiric antibiotic therapy with Rocephin was started for management. There was no reports of nausea, vomiting, diarrhea, fever, chills, rigor. 05/25/2023 Patient is alert and oriented x3 Reports dyuria and frequency today No acute distress noticed Patient's family at bedside High WBCs trending down <Serge Schwartz - Last Filed: 05/25/23 10:26> Date of Service: 05/25/23 <Kevyn Zuniga - Last Filed: 05/25/23 16:29> Review of Systems 10-point ROS is otherwise unremarkable <Serge Schwartz - Last Filed: 05/25/23 10:26> Physical Examination - Vital Signs Temperature: 97.7 F Blood Pressure: 161/74 Pulse: 71 Respirations: 16 Pulse Ox (%): 96 - Studies Microbiology Data (last 24 hrs): 05/21/23 18:20 Blood - Blood Aerobic Blood Culture - Final Escherichia Coli Esbl 05/21/23 18:20 Blood - Blood Blood Culture Gram Stain - Final 05/21/23 18:20 Blood - Blood Anaerobic Blood Culture - Final Escherichia Coli Esbl 05/21/23 18:20 Blood - Blood Gram Stain - Final 05/21/23 18:25 Blood - Blood Aerobic Blood Culture - Final Escherichia Coli Esbl 05/21/23 18:25 Blood - Blood Blood Culture Gram Stain - Final 05/21/23 18:25 Blood - Blood Anaerobic Blood Culture - Final Escherichia Coli Esbl 05/21/23 18:25 Blood - Blood Gram Stain - Final <Serge Schwartz - Last Filed: 05/25/23 10:26> Assessment And Plan - Plan Physical Examination - Physical Exam General: Alert and oriented HEENT: Atraumatic, Normocephalic Respiratory: Normal air movement Cardiovascular: Regular rate/rhythm, Normal S1 S2 Gastrointestinal: Soft and benign Musculoskeletal: No swelling Assessment and Plan - Plan Toxic/Metabolic encephalopathy: Deemed secondary to UTI Leukocytosis UTI: * Patient is alert, oriented no acute distress noticed * 05/21/23- blood culture aerobic Blood Culture-Escherichia Coli Esbl and 05/21/23 Urine- Escherichia Coli Esbl. * Improving WBCs 902 today, no fever, no tachycardia, breathing normally on room air. * Reporting mild Dysuria and increased frequency urine * On antibiotic to Merrem 500 every 8 hours * Will monitor mentation closely. * we will monitor cultures for adjustment as needed. Hypertension: * Chronic controlled on amlodipine 5 mg and losartan 100 mg at home * Resume home medications * we will monitor vitals per unit protocol and continue antihypertensive medications. MAO vs CKD: * Resolved, Improved BUN and creatinine normal today, GFR 95 * we will dose meds for eGFR and avoid nephrotooxins. Prophylaxis: Lovenox for DVT. Code status: Full code. Disposition: we will treat his ams and UTI and discharge him once he is deemed clinically stable. Discharge Plan: Home Plan to discharge in: 72 Hours - Code Status/Comfort Care Code Status Assessed: Yes (full code) Code Status: Full Code Physician Review: Patient Assessed, Agree with Above Assessment and Plan Critical Care: No Time Spent Managing PTS Care (In Minutes): 35 (minutes) <Serge Schwartz - Last Filed: 05/25/23 10:26> Physician Review: Patient Assessed, Agree with Above Assessment and Plan Physician Review Additional Text: He is doing well this morning. Discharge is pending PICC line placement and arrangement of home antibiotics. Appreciate CM assistance. Dr. Franz to take over as his attending physician tomorrow. <Kevyn Zuniga - Last Filed: 05/25/23 16:29>
[2023-05-26] MEDS: Meropenem 1,000 MG in NA CHLORIDE 0.9% 100 ML IV SCH ×4 (01:00→20:41)
[2023-05-26 03:24] LABS: Absolute Lymphocytes (CBC) 0.7 K/uL (0.7-4.9); Hematocrit 30.1 % (39.6-49.0); MCV 93.3 fL (80-100); MPV 8.8 fL (7.6-11.3); Platelets 183 thou/uL (152-406); RBC Red Blood Cell Count 3.22 M/uL (4.33-5.43)
[2023-05-26 03:31] LABS: Potassium 3.5 mEq/L (3.5-5.1)
--- NOTE | 2023-05-26 06:55 | P.PN ---
Subjective Date of Service: 05/26/23 Chief Complaint: UTI, altered mental status Subjective: No new changes (Mild painful urination/ "burning" not new), Tolerating diet, Improving Review of Systems 10-point ROS is otherwise unremarkable Physical Examination - Vital Signs Temperature: 99.1 F Blood Pressure: 144/67 Pulse: 78 Respirations: 15 Pulse Ox (%): 96 - Physical Exam General: Alert, In no apparent distress, Oriented x3, Confused HEENT: Atraumatic, Normocephalic, PERRLA Neck: Supple, 2+ carotid pulse no bruit, JVD not distended Respiratory: Clear to auscultation bilaterally, Normal air movement Cardiovascular: No edema, Normal pulses, Regular rate/rhythm Capillary refill: <2 Seconds Gastrointestinal: Normal bowel sounds, Soft and benign Musculoskeletal: No clubbing, No swelling Integumentary: No rashes, No breakdown Neurological: Normal speech, Normal strength at 5/5 x4 extr Assessment And Plan - Plan Assessment Plan Toxic/Metabolic encephalopathy: Deemed secondary to acute cystitis-improved Escherichia Coli Esbl 05/21/23 Urine- Escherichia Coli Esbl. Leukocytosis-secondary to acute cysitits improved 05/21/23- blood culture aerobic Blood Culture- ID following, Merrem 500 every 8 hours (will need 10-14 days after DC) Follow up with urologist as outpatient Fall precautions 05/26 Plan to DC home with C after PICC line placement, good family support Normocytic anemia acute on chronic HH11.2 trended to 10.3 trend HH Hypoalbuminemia acute on chronic 2.4, serum protein 5.5 assessment plan tolerating PO diet, good appetitie Hypertension: Chronic controlled on amlodipine 5 mg and losartan 100 mg at home Resume home medications MAO resolved Resolved, Improved BUN and creatinine normal today, GFR 95 trend kidney function Full code DVT lovenox Diet cardiac Discharge Plan: Intermediate - Code Status/Comfort Care Code Status: Full Code Physician Review: Patient Assessed, Agree with Above Assessment and Plan Critical Care: No Time Spent Managing PTS Care (In Minutes): 35
--- NOTE | 2023-05-26 09:27 | P.PN ---
Date of Service: 05/26/23 Chief Complaint: UTI, altered mental status Subjective: Patient seen and examined at bedside. In no apparent distress. + dysuria + decreased appetite Plan of care discussed with patient and family in room. Physical Examination Temp Pulse Resp BP Pulse Ox 99.1 F 78 15 144/67 H 96 05/26/23 06:54 05/26/23 06:54 05/26/23 06:54 05/26/23 06:54 05/26/23 06:54 General: Alert, In no apparent distress, Oriented x3 HEENT: Atraumatic. Normocephalic. Respiratory: Clear to auscultation bilaterally, Normal air movement Cardiovascular: No edema, Regular rate/rhythm Gastrointestinal: Normal bowel sounds, Soft and benign. No tenderness. Integumentary: No rashes Neurological: Normal speech Laboratory Data - Reviewed Microbiology Data - Reviewed Imagings Data: - Reviewed Medications List: Reviewed Assessment and Plan Problem List E.coli ESBL Bacteremia secondary to Urinary Tract Infection Acute Kidney Injury Hypertension Nicotine Dependence E.coli ESBL Bacteremia secondary to Urinary Tract Infection - Blood cultures 05/21: Escherichia coli ESBL - Urine culture 05/21: Escherichia coli ESBL - Started on empiric Rocephin on 05/22 which was switched to Meropenem on 05/23 following urine culture results - reports continued dysuria Leukocytosis resolved. Afebrile Recommendations ESBL Bacteremia/UTI: On meropenem IV. Continue antibiotic therapy for 14 days (05/23-06/06). Consider switch to ertapenem IV Q24H to complete remainder of antibiotic course. - PICC line placement pending. Pending home health arrangements. CM/SW following. - Monitor WBC and fever trends - Follow up with urologist as outpatient Case discussed with Howie Malagon
[2023-05-26] MEDS: LOSARTAN POTASSIUM 50 MG TABLET PO SCH (10:34)
[2023-05-26] MEDS: Mupirocin NASAL 2 APPL/1 GM TUBE NAS SCH ×2 (10:35→20:42)
[2023-05-26] MEDS: ENOXAPARIN 40 MG/0.4 ML SQ SCH (10:35)
[2023-05-26] MEDS: AMLODIPINE 5 MG TAB PO SCH (10:35)
[2023-05-26] MEDS: NICOTINE 7 MG/PAT TD SCH (13:36)
[2023-05-26] MEDS: NA CHLORIDE 0.9% 1,000 ML IV SCH ×3 (13:45→23:45)
--- NOTE | 2023-05-26 17:57 | RAD REPORT ---
EXAM DESCRIPTION: RAD - Chest Single View - 05/26/2023 5:44 pm CLINICAL HISTORY: picc line placement COMPARISON: Chest Single View dated 05/21/2023; Chest Pa And Lat (2 Views) dated 12/27/2022; Chest Pa And Lat (2 Views) dated 08/10/2021; Chest Pa And Lat (2 Views) dated 02/20/2016 FINDINGS: Portable chest was obtained following placement of a left upper extremity PICC line. The c atheter tip projects over the SVC.
[2023-05-26 22:29] VITALS: O2SAT 97
[2023-05-27] MEDS: NA CHLORIDE 0.9% 1,000 ML IV SCH ×2 (04:57→09:45)
[2023-05-27] MEDS: Meropenem 1,000 MG in NA CHLORIDE 0.9% 100 ML IV SCH ×2 (04:57→12:31)
--- NOTE | 2023-05-27 08:45 | P.PN ---
Date of Service: 05/27/23 Chief Complaint: UTI, altered mental status Subjective: Patient seen and examined in room. In no apparent distress. Eating breakfast. and daughter at bedside. Patient denies any new or worsening complaints at this time. plan of care discussed with patient and at bedside. Physical Examination Temp Pulse Resp BP Pulse Ox 98.8 F 73 16 152/70 H 99 05/27/23 04:00 05/27/23 04:00 05/27/23 04:00 05/27/23 04:00 05/27/23 04:00 General: Alert, In no apparent distress, Oriented x3 HEENT: Atraumatic. Normocephalic. Respiratory: Clear to auscultation bilaterally, Normal air movement Cardiovascular: No edema, Regular rate/rhythm Gastrointestinal: Normal bowel sounds, Soft and benign. No tenderness. Integumentary: No rashes Neurological: Normal speech Laboratory Data - Reviewed Microbiology Data - Reviewed Imagings Data: - Reviewed Medications List: Acetaminophen (Acetaminophen 325 Mg Tablet) 650 mg PO Q4HP PRN PRN Reason: Pain scale 2-4 (Mild) Last Admin: 05/22/23 18:48 Dose: 650 mg Amlodipine Besylate (Amlodipine 5 Mg Tab) 5 mg PO DAILY [facility] Last Admin: 05/26/23 10:35 Dose: 5 mg Enoxaparin Sodium (Enoxaparin 40 Mg/0.4 Ml) 40 mg SQ DAILY [facility] Last Admin: 05/26/23 10:35 Dose: 40 mg Sodium Chloride (Ns 1000 Ml Ivbag) 1,000 mls @ 100 mls/hr IV .Q10H [facility] Last Admin: 05/27/23 04:57 Dose: 1,000 mls Meropenem 1,000 mg/ Sodium (Chloride) 100 mls @ 200 mls/hr IV Q8H [facility] Last Admin: 05/27/23 04:57 Dose: 100 mls Losartan Potassium (Losartan Potassium 50 Mg Tablet) 100 mg PO DAILY [facility] Last Admin: 05/26/23 10:34 Dose: 100 m Mupirocin (Mupirocin Nasal 2 Appl/1 Gm Tube) 1 appl MAITE BID [facility] Stop: 05/28/23 21:01 Last Admin: 05/26/23 20:42 Dose: 1 appl Nicotine (Nicotine 7 Mg/Pat) 7 mg TD DAILY [facility] Last Admin: 05/26/23 13:36 Dose: 7 mg Ondansetron HCl (Ondansetron 4 Mg/2 Ml Vial) 4 mg IV Q6HP PRN PRN Reason: NAUSEA / VOMITING Assessment and Plan Problem List E.coli ESBL Bacteremia secondary to Urinary Tract Infection Acute Kidney Injury Hypertension Nicotine Dependence E.coli ESBL Bacteremia secondary to Urinary Tract Infection - Blood cultures 05/21: Escherichia coli ESBL - Urine culture 05/21: Escherichia coli ESBL - Started on empiric Rocephin on 05/22 which was switched to Meropenem on 05/23 following urine culture results - reports continued dysuria - PICC line placed 05/26 Leukocytosis resolved. Afebrile Recommendations ESBL Bacteremia/UTI: Continue antibiotic therapy for 14 days (05/23-06/06). - Switch to Ertapenem 1g IV Q24H to complete remainder of antibiotic course. - PICC line placed 05/26 - Monitor WBC and fever trends - Follow up with urologist as outpatient Pending home health arrangements. CM/SW following. Case discussed with Howie Malagon
[2023-05-27] MEDS: Mupirocin NASAL 2 APPL/1 GM TUBE NAS SCH (09:41)
[2023-05-27] MEDS: LOSARTAN POTASSIUM 50 MG TABLET PO SCH (09:41)
[2023-05-27] MEDS: ENOXAPARIN 40 MG/0.4 ML SQ SCH (09:41)
[2023-05-27] MEDS: AMLODIPINE 5 MG TAB PO SCH (09:41)
[2023-05-27] MEDS ORDERED: ERTAPENEM NA 1 GM in NA CHLORIDE 0.9% 100 ML IVPB SCH (12:00)
[2023-05-27] MEDS: NICOTINE 7 MG/PAT TD SCH (12:35)
--- NOTE | 2023-05-27 12:46 | P.DS ---
Admission Date: 05/21/23 Discharge Date: 05/27/23 Disposition: DC HOME/HOME HEALTH CARE Discharge Condition: GOOD Reason for Admission: UTI, altered mental status - Problems (1) Acute cystitis Current Visit: Yes Status: Acute (2) Bacteremia Current Visit: Yes Status: Acute Brief History of Present Illness: 78-year-old male with a past medical history of hypertension, anemia, diabetes type 2, hyperlipidemia, presents to the emergency room with urinary tract infection. Patient has been treated with IV antibiotics, plan to discharge home with home health with IV antibiotics via PICC line. With IV enterapenam IV once daily for 10days after discharge. Additional new medications include oxybutynin 5 mg daily. Hospital Course: 78-year-old male with a past medical history of hypertension, anemia, diabetes type 2, hyperlipidemia, presents to the emergency room with urinary tract infection. Patient has been treated with IV antibiotics, plan to discharge home with home health with IV antibiotics via PICC line. With IV enterapenam IV once daily for 10days after discharge. Additional new medications include oxybutynin 5 mg daily. Patient is tolerating IV medications, tolerating p.o. diet, ambulating. Patient needs to follow-up with primary care physician in 7 to 10 days after discharge. Resume all prior home medications. Follow-up with urology for complicated urinary tract infection. Dr. Malone A copy of this discharge summary will be sent to above providers to facilitate continuity of care. Today, I personally spent 50 minutes with Mr. Ray Bain, and family at bedside, of which greater than 50% of this time was spent with patient education, counseling and coordination Vital Signs/Physical Exam: Temp Pulse Resp BP Pulse Ox 98.4 F 74 18 150/68 H 98 05/27/23 08:00 05/27/23 08:00 05/27/23 08:00 05/27/23 08:00 05/27/23 08:00 Laboratory Data at Discharge: WBC 8.10 thou/uL (4.3-10.9) 05/26/23 02:49 Hgb 10.3 g/dL (13.6-17.9) L 05/26/23 02:49 Hct 30.1 % (39.6-49.0) L 05/26/23 02:49 Plt Count 183 thou/uL (152-406) 05/26/23 02:49 PT 14.6 SECONDS (9.5-12.5) H 05/21/23 18:29 INR 1.33 05/21/23 18:29 APTT 30.6 SECONDS (24.3-36.9) 05/21/23 18:29 Sodium 138 mEq/L (136-145) 05/26/23 02:49 Potassium 3.5 mEq/L (3.5-5.1) 05/26/23 02:49 BUN 14 mg/dL (7-18) 05/26/23 02:49 Creatinine 0.79 mg/dL (0.70-1.30) 05/26/23 02:49 Glucose 103 mg/dL (74-106) 05/26/23 02:49 Total Bilirubin 0.3 mg/dL (0.2-1.0) 05/25/23 02:14 AST 22 U/L (15-37) 05/25/23 02:14 ALT 30 U/L (16-61) 05/25/23 02:14 Alkaline Phosphatase 51 U/L (45-117) 05/25/23 02:14 Home Medications: Abatacept [Orencia] 125 mg SQ EVERY 7TH DAY 05/22/23 Amlodipine [Norvasc*] 1 tab PO DAILY 05/22/23 Folic Acid 1 tab PO DAILY 05/22/23 Losartan Potassium 100 mg PO DAILY 05/22/23 Methotrexate [Methotrexate*] 6 tab PO SEECOM 05/22/23 Amlodipine [Norvasc*] 5 mg PO DAILY tab 05/27/23 Losartan Potassium [Cozaar*] 100 mg PO DAILY 05/27/23 Oxybutynin Chloride [Oxybutynin Chloride ER] 5 mg PO DAILY 30 Days #30 tab 05/27/23 New Medications: Oxybutynin Chloride [Oxybutynin Chloride ER] 5 mg PO DAILY 30 Days #30 tab Physician Discharge Instructions: - Physical Exam General: Alert, In no apparent distress, Oriented x3, Confused HEENT: Atraumatic, Normocephalic, PERRLA Neck: Supple, 2+ carotid pulse no bruit, JVD not distended Respiratory: Clear to auscultation bilaterally, Normal air movement Cardiovascular: No edema, Normal pulses, Regular rate/rhythm Capillary refill: <2 Seconds Gastrointestinal: Normal bowel sounds, Soft and benign Musculoskeletal: No clubbing, No swelling Integumentary: No rashes, No breakdown Neurological: Normal speech, Normal strength at 5/5 x4 extr Patient needs to follow-up with primary care physician in 7 to 10 days after discharge. Resume all prior home medications. Follow-up with urology for complicated urinary tract infection Dr. Malone Cardiac diet as tolerated Resume all home meds New medications to include IV enterapenam IV daily via PICC line Oxybutynin 5 mg daily Diet: AHA Activity: Fall precautions Followup: Erasto Malone [ACTIVE - CAN ADMIT] -
[2023-05-27 14:42] VITALS: BP 155/70; TEMP 98
[2023-05-28] MEDS ORDERED: OXYBUTYNIN ER 5 MG TAB PO SCH (09:00)
== END 2023-05-27 16:29 | disposition home health service (06) | DRG 871 ==
LOC: ER 17:57 → ERHOLD 23:18 → 2ND 05-22 01:31
PROVIDERS: ADMIT Internal Medicine Nephrology; ATTEND Hospitalist
PROC: 02HV33Z Insertion of Infusion Device into Superior Vena Cava, Percutaneous Approach (ICD-10-PCS; principal; 2023-05-26)
DX: A41.51 Sepsis due to Escherichia coli [E. coli] (principal); G92.8 Other toxic encephalopathy; N17.9 Acute kidney failure, unspecified; Z16.12 Extended spectrum beta lactamase (ESBL) resistance; N30.00 Acute cystitis without hematuria; R65.20 Severe sepsis without septic shock; E87.6 Hypokalemia; E78.5 Hyperlipidemia, unspecified; M19.90 Unspecified osteoarthritis, unspecified site; I12.9 Hypertensive chronic kidney disease with stage 1 through stage 4 chronic kidney disease, or unspecified chronic kidney disease; N18.9 Chronic kidney disease, unspecified; E11.22 Type 2 diabetes mellitus with diabetic chronic kidney disease; D63.1 Anemia in chronic kidney disease; E88.09 Other disorders of plasma-protein metabolism, not elsewhere classified; F17.210 Nicotine dependence, cigarettes, uncomplicated; R33.9 Retention of urine, unspecified; Z79.899 Other long term (current) drug therapy
CPT/HCPCS: 36415; 70450; 71045; 80048; 80053; 81001; 82140; 83605; 85025; 85610; 85730; 87040; 87077; 87086; 87088; 87186; 87205; 93005; 96374; 96375; 99285; J0696; J1335; J1650; J2185; J2405; J3475; J7030

== ENCOUNTER 2023-11-20 07:36 | Day surgery (SDC) | payer OTHER ==
[2023-11-03 09:56] LABS: Absolute Basophils 0.1 K/uL (0-0.5); Absolute Eosinophils 0.1 K/uL (0-0.5); Absolute Monocytes 0.4 K/uL (0.1-1.3); Absolute Neutrophil 8.2 K/uL (1.8-8.0); Basophils % 0.6 % (0-1.3); Eosinophils % 1.2 % (0-4.4); Hematocrit 31.7 % (39.6-49.0); Hemoglobin 10.8 g/dL (13.6-17.9); Lymphocytes % 10.1 % (15.3-44.8); MCH 31.1 pg (27.0-35.0); MCHC 34.2 g/dL (32.0-36.0); MCV 90.9 fL (80-100); MPV 8.5 fL (7.6-11.3); Neutrophils % 84.1 % (41.7-73.7); Platelets 354 thou/uL (152-406); RBC Red Blood Cell Count 3.49 M/uL (4.33-5.43); Red Cell Distribution Width 14.4 % (12.1-15.2)
[2023-11-03 10:00] LABS: PT Prothrombin Time 12.3 SECONDS (9.5-12.5); Protime INR 1.12
[2023-11-03 10:17] LABS: Anion Gap 8.1 mEq/L (5.0-15.0); Potassium 4.1 mEq/L (3.5-5.1)
--- NOTE | 2023-11-03 12:00 | RAD REPORT ---
EXAM DESCRIPTION: RAD - Chest Pa And Lat (2 Views) - 11/03/2023 9:38 am CLINICAL HISTORY: PRE FOR URLIFT. Hypertension COMPARISON: Chest Single View dated 05/26/2023; Chest Single View dated 05/21/2023; Chest Pa And Lat (2 Views) dated 12/27/2022; Chest Pa And Lat (2 Views) dated 08/10/2021 TECHNIQUE: PA and lateral views of the chest were obtained. FINDINGS: The lungs are clear. Hyperlucency and hyperinflation suggesting COPD. Heart size is normal and central vasculature is within normal limits. No pleural effusion or pneumothorax seen. No acute bony finding noted. IMPRESSION: No acute cardiopulmonary process.
--- NOTE | 2023-11-04 16:19 | EKG ---
Test Date: 2023-11-03 Test Time: 09:04:46 Wheel Filler: MAXIMUS MEASUREMENT RESULTS: Intervals: Rate: 62 MD: 156 QRSD: 86 QT: 406 QTc: 412 [place]: P: 92 MD: 156 QRS: 80 T: 85 INTERPRETIVE STATEMENTS: Normal sinus rhythm Normal ECG Compared to ECG 05/21/2023 18:42:30 Sinus tachycardia no longer present Myocardial infarct finding no longer present Electronically Signed On 11-04-23 16:15:46 CDT by Varinder Back
[2023-11-20] MEDS: Ringers Lactate 1,000 ML IV ONE (07:50)
[2023-11-20] MEDS ORDERED: LIDOCAINE 1% MPF 5 ML VIAL ONE (08:43)
[2023-11-20] MEDS ORDERED: propofoL 200 MG/20 ML VIAL IV ONE (08:43)
[2023-11-20] MEDS ORDERED: FENTANYL CITR 100 MCG/2 ML ONE (08:44)
[2023-11-20] MEDS ORDERED: MIDAZOLAM HCL 2 MG/2 ML INJ ONE (08:44)
[2023-11-20] MEDS: CEFAZOLIN SODIUM 2 GM/VIAL ONE (09:45)
[2023-11-20] MEDS ORDERED: ONDANSETRON 4 MG/2 ML VIAL ONE (10:04)
[2023-11-20] MEDS ORDERED: dexAMETHasone 10 MG/ML VIAL ONE (10:32)
[2023-11-20] MEDS ORDERED: PHENAZOPYRIDINE 100MG TAB PO ONE ×2 (10:53→12:56)
[2023-11-20] MEDS: CODEINE 30MG/APAP 300MG TAB PO PRN (12:05)
[2023-11-20] MEDS ORDERED: CODEINE 30MG/APAP 300MG TAB ONE (12:08)
[2023-11-20 12:46] VITALS: BP 160/61; O2SAT 97
[2023-11-20 15:37] VITALS: TEMP 97.5
--- NOTE | 2023-11-20 21:34 | OP ---
Surgeon: QUETA DOSS Preoperative Diagnoses: Benign prostatic hypertrophy with lower urinary tract obstruction and urinar y retention. Dome diverticulum of the bladder. Postoperative Diagnoses: Benign prostatic hypertrophy with lower urinary tract obstruction and urina ry retention. Dome diverticulum of the bladder. Principal Procedures: Prostatic urethral lift with 8 implants used, 7 successfully implanted and 1 p ull-through. Indication For Procedure: Mr. Bain presented to the Urology Clinic with recent urinary retention, requiring catheter placement. He underwent evaluation revealing the presence of significant anatomic obstruction due to his prostate with a ball valving median to lateral lobe emanating from the left l ateral wall bladder neck largely. As a result, he was counseled on the potential need for transureth ral resection of the prostate given the obstruction if this was not adequately manipulatable using th e prostatic urethral lift. Procedure Note In Detail: The patient was consented in the preoperative holding area before being tr ansferred to the operative suite where general anesthesia was induced. He was given Bactrim Double S trength tablets for antimicrobial therapy, which he started taking yesterday and this morning in prep aration for surgery today. The urethral Hussein catheter was removed, and the urine was clear. He was placed in the lithotomy position, padded and secured to the table appropriately, and his genitalia w ere prepped with Hibiclens before he was draped in standard fashion. The case was begun using a 20-F rench UroLift sheath and a visual obturator to traverse the urethra and navigate beyond all of the an atomic prostatic urethral obstruction before entering the bladder. I decompressed the bladder of flu id and what was clear appearing urine with minimal debris noted within. There was no significant cys titis seen throughout the majority of the bladder with only a mild degree posteriorly, which potentia lly was also just bladder catheter trauma. There was a large posterior dome diverticulum that was wi de-mouth present. I thus decompressed his bladder and then irrigated his bladder several times to en sure to remove any residual sediment or bacteriuria, if possible. He was given Ancef 2 g for antimic robial prophylaxis and pneumo boots were provided for DVT prophylaxis. The visual obturator was then switched for the first UroLift delivery device and an implant, and I targeted the patient's left lat eral wall at the bladder neck region. Angling above the median to lateral lobar intravesical project ion to lift the tissue in that location, I targeted the 1 o'clock position approximately 1.5 to 2 cm distal to the bladder neck opening and elevated that tissue by dropping my hand before pulling the tr igger after angling the scope 15 degrees laterally. This delivered the needle through the substance of the prostate. I then angled the scope an additional 15 to 20 degrees laterally to ensure the tip of the needle seated outside of the capsule, and I pulled the trigger a second time delivering the ca psular tab and partially retracting the needle. I then pulled the trigger a third time tensioning th e suture and fully retracting the needle before advancing the scope back toward the midline and 2 to 3 mm toward the bladder neck opening until the white line of the monofilament was centered in the del [place]. At this point, I pulled the trigger a fourth time delivering the urethral end piece and t ailoring the suture. The end piece did situate nicely embedded within the prostate tissue and jerzy lateralizing the tissue in that location with a nice rim of tissue between the implant and the entry into the bladder. I thus advanced the scope back into the bladder and switched for a new implant, at this time, targeting the patient's right lateral wall at the bladder neck anteriorly at around the 1 1 o'clock position. Once this was adequately implanted and situated nicely within the prostatic uret hral channel, I then moved to the apex where I placed an implant at the level of the verumontanum ant erolaterally on the left and then placed a similar implant on the right at the 2 o'clock position and the 10 o'clock positions respectively. I then surveyed the channel created using a visual obturator , and while there was some mid gland tissue within the mid zone of the prostate that was intraluminal ly projecting and kissing, the majority of the obstruction appeared to be coming from the ball valvin g median to left lateral lobar intravesical projection. So, at this point, I used an UL1 ATC device and grasped the median to lateral lobe from the right side lateralizing it over to the patient's left , pulling it back into the bladder neck as much as possible and until the localization of the implant was well within the prostatic fossa and ultimately delivered that implant at around the 3 to 4 o'smita ck position tacking the median lobe to the patient's left lateral wall. This did nicely open up the channel at the bladder neck and so I surveyed the channel again, ultimately then electing to elevate some tissue which now seen to droop down from the anterior wall of the prostate. I thus attempted to place an implant in that anterior tissue anterolaterally on the patient's right side in the mid zone of the prostate at approximately the 11 o'clock position, but unfortunately that implant did pull th rough and not situated appropriately. So I had to use an additional, now the seventh implant situate d in a similar position and ultimately was able to place an implant successfully which did raise the roof and elevate the anterior mid zone of the prostate that was previously drooping downward and open ing the channel. I again surveyed the channel created, and there was still the mid zone of the prost ate lateral lobar intrusion coming from both sides, but largely emanating from the patient's right si de; so I used an eighth and final implant with the UL2 device targeting that tissue and nicely latera lizing it creating a beautiful continuous anterior channel visible from the verumontanum through into the bladder neck with the bladder completely decompressed. While there was some residual lateral lo bar intrusion in the inferior portion of the prostate, the anterior channel was indeed present and so further implants were deemed unnecessary, at this point. I thus refilled his bladder with saline an justin removed the scope before placing an 18-Georgian coude catheter into his bladder with ease. 15 cc of sterile water was placed in the balloon, and the bladder was decompressed of light pink urine. The c atheter was connected to a leg bag, and he was taken out of the lithotomy position. He was then awak ened from general anesthesia, transferred to a stretcher, and then transferred to the recovery room i n good condition. Complications: None. Discharge Disposition: He will be given a voiding trial in the recovery, but if he fails, the cathet er will be reinserted and we will defer additional trials of void till next week on Friday. He was g iven a prescription for Bactrim and has a second prescription that he never picked up that he might a lso nut picker if necessary to continue him with antimicrobial therapy until after he successfully is ab le to void with the catheter removed. If persistent inability to void, given the dome diverticular f ormation seen, he may benefit from urodynamics to assess detrusor function, though I think this is unlikely. Otherwise, subsequent followup should be established with me in about 1 month per routine. TIMBO/VASILE Voice ID: [id number] Report ID: [id number]
== END 2023-11-20 15:00 | disposition home or self-care (01) ==
LOC: OR 07:36
PROVIDERS: ATTEND Urology
PROC: 0T7D8DZ Dilation of Urethra with Intraluminal Device, Via Natural or Artificial Opening Endoscopic (ICD-10-PCS; principal; 2023-11-20 09:15)
DX: N40.1 Benign prostatic hyperplasia with lower urinary tract symptoms (principal); N13.8 Other obstructive and reflux uropathy; R33.9 Retention of urine, unspecified
CPT/HCPCS: 36415; 71046; 80048; 85025; 85610; 87077; 87086; 87088; 87186; 93005; J1100; J2001; J2250; J2405; J2704; J3010; J7120

== ENCOUNTER 2024-08-24 09:43 | Day surgery (SDC) | payer OTHER ==
[2024-08-16 11:42] LABS: Absolute Basophils 0.1 K/uL (0-0.5); Absolute Lymphocytes (CBC) 0.9 K/uL (0.7-4.9); Absolute Monocytes 0.4 K/uL (0.1-1.3); Absolute Neutrophil 6.8 K/uL (1.8-8.0); Basophils % 0.7 % (0-1.3); Eosinophils % 0.4 % (0-4.4); Hematocrit 36.9 % (39.6-49.0); Hemoglobin 12.1 g/dL (13.6-17.9); Lymphocytes % 10.4 % (15.3-44.8); MCH 31.5 pg (27.0-35.0); MCHC 32.9 g/dL (32.0-36.0); MCV 95.7 fL (80-100); MPV 9.1 fL (7.6-11.3); Monocytes % 5.4 % (3.3-12.3); Neutrophils % 83.1 % (41.7-73.7); Nucleated Red Blood Cells % 0.1 % (0-0); Platelets 323 thou/uL (152-406); RBC Red Blood Cell Count 3.85 M/uL (4.33-5.43); Red Cell Distribution Width 14.5 % (12.1-15.2)
[2024-08-16 11:55] LABS: Anion Gap 10.2 mEq/L (5.0-15.0); Potassium 4.2 mEq/L (3.5-5.1)
--- NOTE | 2024-08-16 12:06 | RAD REPORT ---
EXAMINATION: TWO VIEW CHEST XR CLINICAL INDICATION: PRE-OP PENDING TURP TECHNIQUE: 2 views of the chest was performed. COMPARISON: 11/03/2023 FINDINGS: The lungs are hyperexpanded suggesting COPD. The heart is normal in size. No displaced fractures evid ent. Costophrenic angle blunting likely related to pleural thickening. IMPRESSION: COPD is suspected without acute finding identified.
--- NOTE | 2024-08-19 13:03 | EKG ---
Test Date: 2024-08-16 Test Time: 12:20:41 Data Scientist: JORGE MEASUREMENT RESULTS: Intervals: Rate: 74 MD: 150 QRSD: 82 QT: 382 QTc: 424 [place]: P: 41 MD: 150 QRS: 35 T: 38 INTERPRETIVE STATEMENTS: Normal sinus rhythm Normal ECG Compared to ECG 11/03/2023 09:04:46 No significant changes Electronically Signed On 08-19-24 12:59:57 DIRECTOR OF ENTERTAINMENT by Lasha Khan
[2024-08-24] MEDS ORDERED: Ringers Lactate 1,000 ML IV ONE (10:03)
[2024-08-24] MEDS: Gentamicin Inj 160 MG in NA CHLORIDE 0.9% 100 ML IV ONE (10:38)
[2024-08-24] MEDS ORDERED: propofoL 200 MG/20 ML VIAL IV ONE ×2 (11:00→12:31)
[2024-08-24] MEDS ORDERED: LIDOCAINE 1% MPF 5 ML VIAL ONE (11:00)
[2024-08-24] MEDS ORDERED: FENTANYL CITR 100 MCG/2 ML ONE ×2 (11:00→12:31)
[2024-08-24] MEDS ORDERED: ONDANSETRON 4 MG/2 ML VIAL ONE (12:31)
[2024-08-24] MEDS: AMPICILLIN SODIUM 2 GM/VIAL VIAL ONE (12:53)
[2024-08-24] MEDS ORDERED: dexAMETHasone 10 MG/ML VIAL ONE (12:57)
[2024-08-24] MEDS ORDERED: GLYCOPYRROLATE 0.2 MG/ML SYR ONE (13:23)
[2024-08-24] MEDS: HYDROMORPHONE HCL 1 MG/ML INJ ONE (14:10)
[2024-08-24] MEDS: FENTANYL CITR 100 MCG/2 ML ONE (14:25)
--- NOTE | 2024-08-24 14:34 | P.OP ---
Date of Service: 08/24/24 Preoperative diagnoses: Benign prostatic hypertrophy with lower urinary tract obstruction Incomplete emptying of the bladder s/p prostatic urethral lift Postoperative diagnoses: Benign prostatic hypertrophy with lower urinary tract obstruction Incomplete emptying of the bladder s/p prostatic urethral lift Principal procedures: Bipolar channel TURP/transurethral resection of the prostate Indication for procedure: 79-year-old gentleman with history of obstructive lower urinary tract symptoms and chronic bacteriuria who underwent prostatic urethral lift with significant resolution of his symptoms and more complete emptying of his bladder initially. Subsequently, his volume of incomplete emptying began to increase, though he r emained largely asymptomatic. As a result, he was counseled on the potential benefit for removal of the intravesically projecting median lobe contributing to his obstruction and degree of urinary retention, which was progressive. Procedure note: The patient was consented in the preoperative holding area before being transferred to the operative suite where general anesthesia was induced. He was given ampicillin 2 g and gentamicin 160 mg IV antimicrobial prophylaxis, and pneumoboots were provided for DVT prophylaxis. He was placed in the lithotomy position, padded and secured to the table appropriately. His genitalia was prepped with Hibiclens and he was draped in standard fashion. The case was begun using urethral sounds to dilate the meatus and fossa navicularis to 30 [place]. Then, using a visual obturator and the 26 [place] resectoscope sheath, I was able to traverse the urethra and into his bladder with ease. I decompressed his bladder of fluid and urine, and then refilled it with sterile saline. I surveyed the bladder in its entirety to confirm the absence of any concerning papillary mucosal lesions, foreign bodies, or stones. The bladder did have a bit of a floppy neuropathic appearance and was moderately trabeculated. There was intravesical projection of the median lobe largely emanating from the left lateral wall that was abutting the trigone. As a result, I switched the visual obturator for a bipolar resection loop, and I began to resect the intraluminal component of the median lobe. I continued this resection across the entirety of the median lobe until the bladder neck was whittle down to the level of the trigone. I then continued the resection of that elevated median bar to create a smooth trough all the way down to the verumontanum. Additional lateral lobar resection was performed given intraluminal projection into the prostatic urethra. Of note, I did encounter a UroLift implant or 2 in the median lobe, where I had apparently attempted to staple it off to the side. I was able to remove those implants intact with both the capsular tab and the urethral end piece visible. In the process of the resection, 1 additional implant did become exposed anterolaterally on the left, but sufficient tissue around it to allow it to re-bury itself was present. As a result, after having created a nice trough and observing the channel created at the level of the verumontanum. There was evidence of an anterior channel from the prior UroLift, and now also a posterior channel with some slight residual apical lateral lobar kissing hypertrophy. B ecause of a desire to avoid encountering and exposing multiple additional UroLift implants, further resection more anteriorly within the gland was avoided. I then removed all prostate chips using an Ilich evacuator and direct visualization. Once this was done, I refilled his bladder with NS and then placed a 22 [place] three-way Hussein catheter via his urethra into his bladder with ease. 30 cc of sterile water was placed in the balloon. He was then awakened from general anesthesia before being transferred to a stretcher, and then he was transferred to the recovery room in good condition. Complications: None Discharge disposition: He will manage the catheter for the next 3 days with anticipated removal on Friday in the clinic. Subsequent evaluation can be established for about 3 months from now unless he has a more acute issue between now and then.
[2024-08-24] MEDS ORDERED: CODEINE 30MG/APAP 300MG TAB PO PRN (14:54)
[2024-08-24] MEDS ORDERED: OXYBUTYNIN ER 5 MG TAB PO ONE (15:35)
[2024-08-24] MEDS ORDERED: PHENAZOPYRIDINE 100MG TAB PO ONE (15:36)
[2024-08-24] MEDS: OXYBUTYNIN ER 5 MG TAB PO ONE (15:38)
[2024-08-24] MEDS: PHENAZOPYRIDINE 100MG TAB PO ONE (15:39)
[2024-08-24 16:47] VITALS: BP 183/82; TEMP 97.1; O2SAT 98
== END 2024-08-24 16:38 | disposition home or self-care (01) ==
LOC: OR 09:43
PROVIDERS: ATTEND Urology
PROC: 0VT08ZZ Resection of Prostate, Via Natural or Artificial Opening Endoscopic (ICD-10-PCS; principal; 2024-08-24 13:15)
DX: N40.1 Benign prostatic hyperplasia with lower urinary tract symptoms (principal); N13.8 Other obstructive and reflux uropathy; R39.14 Feeling of incomplete bladder emptying
CPT/HCPCS: 93005; 87088; 85025; 87086; 80048; 36415; 88305; 71046; 52601; J2704; J1580; J3010 ×2; J1100; J1171; J2405; J0290; J7120; J2003